=== PATIENT | female | born 1990 | race Caucasian/White ===

== ENCOUNTER 2018-08-17 02:27 | Emergency (ER) | payer BC ==
--- NOTE | 2018-08-17 03:11 | ED ---
Female Urogenital HPI - General Chief complaint: Vaginal Bleeding Stated complaint: 12 weeks preg vaginal bleeding Time Seen by Provider: 08/17/18 03:09 Source: patient Limitations: no limitations - History of Present Illness Initial comments: Rafi is a female who reports her last menstrual period was May 21, she had a positive test on July 07. Patient reports that she's had some nausea and generalized fatigue but otherwise no complications during this . Today she started having some spotting and contacted ' s office, patient reports that she had a consultation there today and is scheduled for a first trimester ultrasound tomorrow. Patient reports that after her consultation appointment today she returned home and was having some continued menstrual-like cramping and vaginal bleeding. Patient reports she took a warm bath she reports her vaginal bleeding then became much worse she began passing large clots and did pass a clot that she believed was tissue. Patient then decided to come to the ER for further evaluation. This is her first she has no concern for sexually transmitted infection she is uncertain of her blood type. - Related Data Allergies Allergy/AdvReac Type Severity Reaction Status Date / Time amoxicillin Allergy Rash/Hives Verified 08/17/18 02:40 Review of Systems ROS Statement: Those systems with pertinent positive or pertinent negative responses have been documented in the HPI. ROS Other: All systems not noted in ROS Statement are negative. Past Medical History Past Medical History: No Reported History History of Any Multi-Drug Resistant Organisms: None Reported Past Surgical History: No Surgical Hx Reported Past Psychological History: No Psychological Hx Reported Smoking Status: Never smoker Past Alcohol Use History: Occasional Past Drug Use History: None Reported General Exam - General Exam Comments Initial Comments: Physical Exam GENERAL: Patient is well-developed and well-nourished. Patient is nontoxic and well-hydrated and is in no distress. HENT: Normocephalic, Atraumatic. EYES: PERRL, EOMI PULMONARY: Unlabored respirations. CARDIOVASCULAR: Regular rate and rhythm ABDOMEN: Soft and nontender with normal bowel sounds. SKIN: Skin is clear with no lesions or rashes and otherwise unremarkable. : Normal external genitalia Dark blood and clots in the vaginal vault Cervix is dilated to approximately 1 cm, large clots passing via cervix - no obvious tissue was evaluated NEUROLOGIC: Patient is alert and oriented x3. Moving all extremities spontaneously MUSCULOSKELETAL: Normal extremities with adequate strength and full range of motion. No lower extremity swelling or edema. No calf tenderness. PSYCHIATRIC: Visual educational depression Limitations: no limitations Limitations: no limitations Course Vital Signs 08/17/18 02:38 Temperature 98.2 F Pulse Rate 75 Respiratory 18 Rate Blood Pressure 112/72 O2 Sat by Pulse 99 Oximetry Medical Decision Making - Medical Decision Making Patient was seen and evaluated history is obtained from the patient History and physical exam are concerning for first trimester bleeding versus miscarriage Very minimal menstrual-like cramping, no significant pain or tenderness Bedside ultrasound reveals no tissue in the uterus, no free fluid in the pelvis Patient's CBC is unremarkable white blood cell count is 14 which is likely related to , hemoglobin stable at 13.7 Patient's beta hCG is less than 600, this does not correlate with her expected dates, I have a suspicion the patient had a nonviable versus demise some time ago Blood type is Rh+ there is no indication for RhoGAM All results were discussed with the patient, significant other and patient's mother at bedside. I did offer the patient a transvaginal ultrasound on the emergency department to evaluate further however at this time the patient would prefer to be discharged home she does have an outpatient appointment for a ultrasound at noon today. During that the beta hCG is not significantly elevated I have no concern for molar . The patient does not have any significant pain or tenderness or free fluid in the pelvis with minimal concern for ectopic . I suspect the patient has had a completed miscarriage and will need OB follow-up. Return parameters were discussed all questions pertaining care were answered best my ability patient was discharged home in stable condition. - Lab Data Result diagrams: 08/17/18 03:37 Lab Results 08/17/18 08/17/18 08/17/18 Range/Units 03:37 03:37 03:37 WBC 14.0 H (3.8-10.6) k/uL RBC 4.67 (3.80-5.40) m/uL Hgb 13.7 (11.4-16.0) gm/dL Hct 41.3 (34.0-46.0) % MCV 88.5 (80.0-100.0) fL MCH 29.5 (25.0-35.0) pg MCHC 33.3 (31.0-37.0) g/dL RDW 13.4 (11.5-15.5) % Plt Count 160 (150-450) k/uL Neutrophils % 88 % Lymphocytes % 8 % Monocytes % 3 % Eosinophils % 1 % Basophils % 0 % Neutrophils # 12.3 H (1.3-7.7) k/uL Lymphocytes # 1.1 (1.0-4.8) k/uL Monocytes # 0.4 (0-1.0) k/uL Eosinophils # 0.1 (0-0.7) k/uL Basophils # 0.0 (0-0.2) k/uL HCG, Quant 568.1 mIU/mL Urine Color Urine Appearance (Clear) Urine pH (5.0-8.0) Ur Specific [place] (1.001-1.035) Urine Protein (Negative) Urine Glucose (UA) (Negative) Urine Ketones (Negative) Urine Blood (Negative) Urine Nitrite (Negative) Urine Bilirubin (Negative) Urine Urobilinogen (<2.0) mg/dL Ur Leukocyte Esterase (Negative) Urine RBC (0-5) /hpf Urine WBC (0-5) /hpf Ur Squamous Epith Cells (0-4) /hpf Blood Type A Positive Blood Type Recheck [facility] ONLY 08/17/18 Range/Units 03:37 WBC (3.8-10.6) k/uL RBC (3.80-5.40) m/uL Hgb (11.4-16.0) gm/dL Hct (34.0-46.0) % MCV (80.0-100.0) fL MCH (25.0-35.0) pg MCHC (31.0-37.0) g/dL RDW (11.5-15.5) % Plt Count (150-450) k/uL Neutrophils % % Lymphocytes % % Monocytes % % Eosinophils % % Basophils % % Neutrophils # (1.3-7.7) k/uL Lymphocytes # (1.0-4.8) k/uL Monocytes # (0-1.0) k/uL Eosinophils # (0-0.7) k/uL Basophils # (0-0.2) k/uL HCG, Quant mIU/mL Urine Color Light Yellow Urine Appearance Clear (Clear) Urine pH 7.0 (5.0-8.0) Ur Specific [place] 1.003 (1.001-1.035) Urine Protein Negative (Negative) Urine Glucose (UA) Negative (Negative) Urine Ketones Negative (Negative) Urine Blood Large H (Negative) Urine Nitrite Negative (Negative) Urine Bilirubin Negative (Negative) Urine Urobilinogen <2.0 (<2.0) mg/dL Ur Leukocyte Esterase Negative (Negative) Urine RBC 66 H (0-5) /hpf Urine WBC 1 (0-5) /hpf Ur Squamous Epith Cells <1 (0-4) /hpf Blood Type Blood Type Recheck Disposition Clinical Impression: Miscarriage Disposition: HOME SELF-CARE Condition: Stable Instructions (If sedation given, give patient instructions): Miscarriage (ED) Is patient prescribed a controlled substance at d/c from ED?: No Referrals: Macie Howard MD [Primary Care Provider] - 1-2 days Dominique Mazariegos DO [Doctor of Osteopathic Medicine] - 1-2 days
[2018-08-17 03:45] LABS: Basophils % (A) 0 %; Eosinophils # (A) 0.1 k/uL (0-0.7); Eosinophils % (A) 1 %; HCT 41.3 % (34.0-46.0); HGB 13.7 gm/dL (11.4-16.0); Lymphocytes # (A) 1.1 k/uL (1.0-4.8); Lymphocytes % (A) 8 %; MCH 29.5 pg (25.0-35.0); MCHC 33.3 g/dL (31.0-37.0); MCV 88.5 fL (80.0-100.0); Mean Platelet Volume 8.1; Monocytes # (A) 0.4 k/uL (0-1.0); Monocytes % (A) 3 %; Neutrophils # (A) 12.3 k/uL (1.3-7.7); Neutrophils % (A) 88 %; Platelet Count 160 k/uL (150-450); RBC 4.67 m/uL (3.80-5.40); RDW 13.4 % (11.5-15.5)
[2018-08-17 03:47] LABS: Appearance,Urine Clear (Clear); Bilirubin,Urine Negative (Negative); Blood,Urine Large (Negative); Color,Urine Light Yellow; Glucose,Urine (UA) Negative (Negative); Ketones,Urine Negative (Negative); Leukocyte Esterase,Urine Negative (Negative); Nitrite,Urine Negative (Negative); Protein,Urine Negative (Negative); RBC,Urine 66 /hpf (0-5); Specific Gravity,Urine 1.003 (1.001-1.035); Squamous Epithelial Cell,Urine <1 /hpf (0-4); Urobilinogen,Urine <2.0 mg/dL (<2.0)
[2018-08-17] MEDS ORDERED: ACET/COD 300 MG/30 MG STARTER PACK 6 TAB BTL PO STA (04:45)
[2018-08-17 05:05] VITALS: BP 103/61; PULSE 66; RESP 19; TEMP 98.3
== END 2018-08-17 04:49 | disposition home or self-care (01) ==
LOC: EC 02:27
DX: O03.9 Complete or unspecified spontaneous abortion without complication (principal); Z88.0 Allergy status to penicillin
CPT/HCPCS: 36415; 81001; 84702; 85025; 86900; 86901; 99284

== ENCOUNTER 2018-12-26 21:54 | Emergency (ER) | payer BC ==
[2018-12-26 22:25] VITALS: RESP 18; TEMP 98.2
--- NOTE | 2018-12-26 22:27 | ED ---
Female Urogenital HPI - General Chief complaint: Urogenital Stated complaint: Back pain Time Seen by Provider: 12/26/18 22:25 Source: patient, RN notes reviewed, old records reviewed Mode of arrival: ambulatory Limitations: no limitations - History of Present Illness Initial comments: This is a 28-year-old female the ER today. She presents today for evaluation of bowel pain severe sudden onset of bowel pain this afternoon with near syncopal event while in urination. Patient is had difficulty with urination as well. Significant recent medical history includes 2 pregnancies both versus spontaneous miscarriage. No surgery. Patient is currently on control denies chance of . She is complaining of suprapubic abdominal pain, no discharge, no significant dysuria or difficulty with bowel movements. MD Complaint: pelvic pain -: hour(s) Location: suprapubic Radiation: suprapubic Severity: moderate Severity scale (1-10): 5 Quality: cramping, dull Consistency: constant Improves with: none Worsens with: none Last Menstrual Period: 12/04/18 Associated Symptoms: abdominal pain, syncope (Near) - Related Data Home Medications Medication Instructions Recorded Confirmed Amethia Lo 100-20 1 tab PO DAILY 12/26/18 12/26/18 Clindamycin Topical Soln 1 applic TOPICAL BID 12/26/18 12/26/18 [Cleocin-T Topical Soln] Dextroamphetamine/Amphetamine 10 mg PO BID 12/26/18 12/26/18 [Adderall Xr] Minocycline HCl [Minocin] 100 mg PO DAILY 12/26/18 12/26/18 Allergies Allergy/AdvReac Type Severity Reaction Status Date / Time amoxicillin Allergy Rash/Hives Verified 12/26/18 22:39 Review of Systems ROS Statement: Those systems with pertinent positive or pertinent negative responses have been documented in the HPI. ROS Other: All systems not noted in ROS Statement are negative. Past Medical History Past Medical History: No Reported History History of Any Multi-Drug Resistant Organisms: None Reported Past Surgical History: No Surgical Hx Reported Past Psychological History: No Psychological Hx Reported Smoking Status: Never smoker Past Alcohol Use History: Occasional Past Drug Use History: None Reported General Exam Limitations: no limitations General appearance: alert, in no apparent distress Head exam: Present: atraumatic, normocephalic, normal inspection Eye exam: Present: normal appearance, PERRL, EOMI. Absent: scleral icterus, conjunctival injection, periorbital swelling ENT exam: Present: normal exam, mucous membranes moist Neck exam: Present: normal inspection. Absent: tenderness, meningismus, lymphadenopathy Respiratory exam: Present: normal lung sounds bilaterally. Absent: respiratory distress, wheezes, rales, rhonchi, stridor Cardiovascular Exam: Present: regular rate, normal rhythm, normal heart sounds. Absent: systolic murmur, diastolic murmur, rubs, gallop, clicks GI/Abdominal exam: Present: soft, normal bowel sounds. Absent: distended, tenderness, guarding, rebound, rigid Extremities exam: Present: normal inspection, full ROM, normal capillary refill. Absent: tenderness, pedal edema, joint swelling, calf tenderness Back exam: Present: normal inspection Neurological exam: Present: alert, oriented X3, CN II-XII intact Psychiatric exam: Present: normal affect, normal mood Skin exam: Present: warm, dry, intact, normal color. Absent: rash Course Vital Signs 12/26/18 12/26/18 12/27/18 22:21 23:28 00:48 Temperature 98.2 F Pulse Rate 87 72 83 Respiratory 18 18 Rate Blood Pressure 120/80 103/67 117/71 O2 Sat by Pulse 100 100 98 Oximetry - Reevaluation(s) Reevaluation #1: Medical record is reviewed Beta from first miscarriage this year and August did trend down to 0 no lab va lues from second miscarriage Patient is no significant acute distress able to ambulate eat and drink, vital signs are normal and have been stable Medical Decision Making - Medical Decision Making 28 female the ER with new and abdominal pain. Patient will follow-up regarding early with OB who is through Dr. Gomez. Patient is also here in the ER which is expected is negative with -700. - Lab Data Result diagrams: 12/26/18 23:12 12/26/18 23:12 Lab Results 12/26/18 12/26/18 12/26/18 Range/Units 23:00 23:00 23:12 WBC 11.0 H (3.8-10.6) k/uL RBC 5.04 (3.80-5.40) m/uL Hgb 14.2 (11.4-16.0) gm/dL Hct 42.3 (34.0-46.0) % MCV 83.9 (80.0-100.0) fL MCH 28.3 (25.0-35.0) pg MCHC 33.7 (31.0-37.0) g/dL RDW 15.0 (11.5-15.5) % Plt Count 154 (150-450) k/uL Neutrophils % 82 % Lymphocytes % 11 % Monocytes % 5 % Eosinophils % 1 % Basophils % 0 % Neutrophils # 9.0 H (1.3-7.7) k/uL Lymphocytes # 1.3 (1.0-4.8) k/uL Monocytes # 0.5 (0-1.0) k/uL Eosinophils # 0.1 (0-0.7) k/uL Basophils # 0.0 (0-0.2) k/uL Sodium (137-145) mmol/L Potassium (3.5-5.1) mmol/L Chloride (98-107) mmol/L Carbon Dioxide (22-30) mmol/L Anion Gap mmol/L BUN (7-17) mg/dL Creatinine (0.52-1.04) mg/dL Est GFR (CKD-EPI)AfAm (>60 ml/min/1.73 sqM) Est GFR (CKD-EPI)NonAf (>60 ml/min/1.73 sqM) Glucose (74-99) mg/dL Calcium (8.4-10.2) mg/dL Total Bilirubin (0.2-1.3) mg/dL AST (14-36) U/L ALT (9-52) U/L Alkaline Phosphatase (38-126) U/L Total Protein (6.3-8.2) g/dL Albumin (3.5-5.0) g/dL HCG, Quant mIU/mL Urine Color Dark Yellow Urine Appearance Clear (Clear) Urine pH 5.5 (5.0-8.0) Ur Specific [place] 1.031 (1.001-1.035) Urine Protein Trace H (Negative) Urine Glucose (UA) Negative (Negative) Urine Ketones Negative (Negative) Urine Blood Trace H (Negative) Urine Nitrite Negative (Negative) Urine Bilirubin Negative (Negative) Urine Urobilinogen <2.0 (<2.0) mg/dL Ur Leukocyte Esterase Small H (Negative) Urine RBC 1 (0-5) /hpf Urine WBC 2 (0-5) /hpf Ur Squamous Epith Cells 2 (0-4) /hpf Urine Mucus Few H (None) /hpf Urine HCG, Qual Detected (Not Detectd) 12/26/18 12/26/18 Range/Units 23:12 23:12 WBC (3.8-10.6) k/uL RBC (3.80-5.40) m/uL Hgb (11.4-16.0) gm/dL Hct (34.0-46.0) % MCV (80.0-100.0) fL MCH (25.0-35.0) pg MCHC (31.0-37.0) g/dL RDW (11.5-15.5) % Plt Count (150-450) k/uL Neutrophils % % Lymphocytes % % Monocytes % % Eosinophils % % Basophils % % Neutrophils # (1.3-7.7) k/uL Lymphocytes # (1.0-4.8) k/uL Monocytes # (0-1.0) k/uL Eosinophils # (0-0.7) k/uL Basophils # (0-0.2) k/uL Sodium 139 (137-145) mmol/L Potassium 4.1 (3.5-5.1) mmol/L Chloride 106 (98-107) mmol/L Carbon Dioxide 23 (22-30) mmol/L Anion Gap 10 mmol/L BUN 20 H (7-17) mg/dL Creatinine 0.86 (0.52-1.04) mg/dL Est GFR (CKD-EPI)AfAm >90 (>60 ml/min/1.73 sqM) Est GFR (CKD-EPI)NonAf >90 (>60 ml/min/1.73 sqM) Glucose 97 (74-99) mg/dL Calcium 9.0 (8.4-10.2) mg/dL Total Bilirubin 0.3 (0.2-1.3) mg/dL AST 26 (14-36) U/L ALT 22 (9-52) U/L Alkaline Phosphatase 62 (38-126) U/L Total Protein 6.6 (6.3-8.2) g/dL Albumin 4.3 (3.5-5.0) g/dL HCG, Quant 729.5 mIU/mL Urine Color Urine Appearance (Clear) Urine pH (5.0-8.0) Ur Specific [place] (1.001-1.035) Urine Protein (Negative) Urine Glucose (UA) (Negative) Urine Ketones (Negative) Urine Blood (Negative) Urine Nitrite (Negative) Urine Bilirubin (Negative) Urine Urobilinogen (<2.0) mg/dL Ur Leukocyte Esterase (Negative) Urine RBC (0-5) /hpf Urine WBC (0-5) /hpf Ur Squamous Epith Cells (0-4) /hpf Urine Mucus (None) /hpf Urine HCG, Qual (Not Detectd) - Radiology Data Radiology results: report reviewed (Ultrasound OB is negative, no findings), image reviewed Disposition Clinical Impression: Abdominal pain, at early stage Disposition: HOME SELF-CARE Condition: Good Instructions (If sedation given, give patient instructions): Abdominal Pain in (ED) Is patient prescribed a controlled substance at d/c from ED?: No Referrals: Macie Howard MD [Primary Care Provider] - 1-2 days
[2018-12-26] MEDS ORDERED: SODIUM CHLORIDE 0.9% 1,000 ML IV ONE (22:45)
[2018-12-26] MEDS ORDERED: MORPHINE SULFATE 4 MG/ML SYRINGE IV STA (22:45)
[2018-12-26 23:19] LABS: Appearance,Urine Clear (Clear); Bilirubin,Urine Negative (Negative); Blood,Urine Trace (Negative); Color,Urine Dark Yellow; Glucose,Urine (UA) Negative (Negative); Ketones,Urine Negative (Negative); Leukocyte Esterase,Urine Small (Negative); Mucus,Urine Few /hpf; Nitrite,Urine Negative (Negative); PH, Urine 5.5 (5.0-8.0); Protein,Urine Trace (Negative); RBC,Urine 1 /hpf (0-5); Specific Gravity,Urine 1.031 (1.001-1.035); Squamous Epithelial Cell,Urine 2 /hpf (0-4); Urobilinogen,Urine <2.0 mg/dL (<2.0); WBC,Urine 2 /hpf (0-5)
[2018-12-26 23:25] LABS: Basophils % (A) 0 %; Eosinophils # (A) 0.1 k/uL (0-0.7); Eosinophils % (A) 1 %; HCT 42.3 % (34.0-46.0); HGB 14.2 gm/dL (11.4-16.0); Lymphocytes # (A) 1.3 k/uL (1.0-4.8); Lymphocytes % (A) 11 %; MCH 28.3 pg (25.0-35.0); MCHC 33.7 g/dL (31.0-37.0); MCV 83.9 fL (80.0-100.0); Mean Platelet Volume 9.2; Monocytes # (A) 0.5 k/uL (0-1.0); Monocytes % (A) 5 %; Neutrophils % (A) 82 %; Platelet Count 154 k/uL (150-450); RBC 5.04 m/uL (3.80-5.40)
[2018-12-26 23:34] LABS: ALT 22 U/L (9-52); AST 26 U/L (14-36); African American GFR (CKD) >90 (>60 ml/min/1.73 sqM); Albumin 4.3 g/dL (3.5-5.0); Alkaline Phosphatase 62 U/L (38-126); Anion Gap 10 mmol/L; Blood Urea Nitrogen 20 mg/dL (7-17); Carbon Dioxide 23 mmol/L (22-30); Chloride 106 mmol/L (98-107); Glucose 97 mg/dL (74-99); Potassium 4.1 mmol/L (3.5-5.1); Sodium 139 mmol/L (137-145); Total Bilirubin 0.3 mg/dL (0.2-1.3); Total Protein 6.6 g/dL (6.3-8.2)
[2018-12-27 00:50] VITALS: BP 117/71; PULSE 83
--- NOTE | 2018-12-27 00:53 | US ---
EXAMINATION TYPE: Transabdominal/transvaginal pelvic ultrasound DATE OF EXAM: 12/27/2018 12:22 AM COMPARISON: NONE CLINICAL HISTORY: pain. Pt states pelvic pressure and back pain, pt states unknown LMP due to recent miscarriage in October, has not had normal menses yet EXAM PERFORMED: Transvaginal (TV) and Transabdominal (TA) EXAM MEASUREMENTS: GESTATIONAL AGE / DATING Physician Established: Not yet established Dates by LMP: Unknown Dates by Current Scan for: No IUP seen at this time MATERNAL ANATOMY Uterus: 9.5 x 4.7 x 5.9 cm Right Ovary: 3.1 x 1.9 x 2.1 cm Left Ovary: Unable to visualize Post CDS / Adnexa: wnl Presence of free fluid: Yes, small amount posterior cul de sac Presence of corpus luteal cyst: Right Ovary= 2.0 x 1.4 x 1.9 cm GESTATION / SURVEY IUP: No gestational sac or yolk sac. No pole. No IUP seen at this time, endometrium abnormally thickened (2.2 cm) and heterogeneous with cystic components near lower uterine segment Date of LMP: Unknown Beta HcG (if available): 729.5 IMPRESSION: No intrauterine seen at this time. It may still be too early. Suggest following the beta-hCG trend and short follow-up ultrasound. No adnexal masses to suggest ectopic at this time either.
[2018-12-29 15:17] LABS: C. trachomatis,PCR Negative (Neg,Equiv); Chlamydia trachomatis Source Urine
[2018-12-29 15:25] LABS: N. gonorrhoeae,PCR Negative (Neg,Equiv); Neisseria Source Urine
== END 2018-12-27 01:39 | disposition home or self-care (01) ==
LOC: EC 21:54
DX: O99.89 Other specified diseases and conditions complicating pregnancy, childbirth and the puerperium (principal); R10.30 Lower abdominal pain, unspecified; R10.2 Pelvic and perineal pain; Z3A.00 Weeks of gestation of pregnancy not specified; Z88.0 Allergy status to penicillin; Z79.899 Other long term (current) drug therapy
CPT/HCPCS: 36415; 76801; 76817; 80053; 81001; 81025; 84702; 85025; 87086; 87491; 87591; 96360; 99284

== ENCOUNTER 2019-09-01 15:32 | Inpatient (IN) | payer BC ==
[2019-09-08] MEDS ORDERED: OXYTOCIN 10 UNIT/ML 1 ML VIAL IM PRN (06:27)
[2019-09-08] MEDS ORDERED: METHYLERGONOVINE 0.2 MG/ML 1 ML AMP IM PRN (06:27)
[2019-09-08] MEDS ORDERED: LIDOCAINE 0.5% (PF) 5 MG/ML (50 ML SDV) SQ PRN (06:27)
[2019-09-08] MEDS ORDERED: CARBOPROST TROMETHAMINE 250 MCG/ML 1 ML AMP IM PRN (06:27)
[2019-09-08] MEDS ORDERED: TERBUTALINE 1 MG/ML VIAL SQ PRN (06:27)
[2019-09-08] MEDS ORDERED: OXYTOCIN 30 UNITS/500 ML NS 30 UNIT in SALINE 1 500ML.BAG IV SCH (06:30)
[2019-09-08] MEDS: LACTATED RINGERS 1,000 ML IV SCH ×2 (06:43→11:37)
[2019-09-08 07:04] LABS: Basophils % (A) 0 %; Eosinophils # (A) 0.1 k/uL (0-0.7); Eosinophils % (A) 1 %; HCT 41.1 % (34.0-46.0); HGB 13.5 gm/dL (11.4-16.0); Lymphocytes # (A) 1.6 k/uL (1.0-4.8); Lymphocytes % (A) 11 %; MCHC 32.8 g/dL (31.0-37.0); MCV 85.3 fL (80.0-100.0); Mean Platelet Volume 10.2; Monocytes # (A) 0.5 k/uL (0-1.0); Monocytes % (A) 3 %; Neutrophils % (A) 83 %; Platelet Count 129 k/uL (150-450); RBC 4.82 m/uL (3.80-5.40); RDW 14.8 % (11.5-15.5); WBC 14.4 k/uL (3.8-10.6)
--- NOTE | 2019-09-08 08:46 | P.HPOB ---
History of Present Illness H&P Date: 09/08/19 Chief Complaint: IUP 41 0/7 weeks, postdates This is a pleasant 29 yo at 41 0/7 weeks, presents for induction of labor secondary to postdates. she notes good FM, ctx last night, denies VB, LOF she has been receiving routine care that has been complicated by a right multicystic kidney. Maternal- medicine consult was obtained testing has been performed and normal in nature. Patient will need pediatric follow-up after delivery. On bloodwork patient has a blood type of A+, rubella status immune, RPR nonreactive, hepatitis B surface antigen negative, HIV negative, she did pass her 1 hour gestational diabetes screen, group beta strep culture was negative on 08/03/19. Review of Systems Constitutional: Denies fatigue, Denies fever Ears, nose, mouth and throat: Denies headache Cardiovascular: Reports leg edema Respiratory: Denies dyspnea Gastrointestinal: Denies diarrhea, Denies nausea, Denies vomiting Genitourinary: Reports Past Medical History Past Medical History: No Reported History History of Any Multi-Drug Resistant Organisms: None Reported Past Surgical History: No Surgical Hx Reported Additional Past Surgical History / Comment(s): [place] tooth extraction Past Anesthesia/Blood Transfusion Reactions: No Reported Reaction Past Psychological History: No Psychological Hx Reported Smoking Status: Never smoker Past Alcohol Use History: None Reported Past Drug Use History: None Reported - Past Family History Father Family Medical History: No Reported History Medications and Allergies Home Medications Medication Instructions Recorded Confirmed Type 78/Iron/Folate 1/Dha 1 each PO DAILY 09/08/19 09/08/19 History [Prenate Dha Softgel] Allergies Allergy/AdvReac Type Severity Reaction Status Date / Time amoxicillin Allergy Rash/Hives Verified 09/08/19 06:26 Exam Osteopathic Statement: *. No significant issues noted on an osteopathic structural exam other than those noted in the History and Physical/Consult. Vital Signs Temp Pulse Resp BP 09/08/19 06:28 98.4 F 105 H 16 113/70 Intake and Output 09/07/19 09/08/19 09/08/19 22:59 06:59 14:59 Other: Weight 90.718 kg On targeted physical exam this is a well-nourished well-developed female in no acute distress, breathing is noted to be nonlabored, heart has regular rate and rhythm, abdomen is gravid and appropriate for gestational age, on cervical exam she is 3-4/90/-2 with a bulging bag of water, amniotomy is performed and clear fluid is noted, heart tones are noted to be category 1 contractions are irregular. Results Result Diagrams: 09/08/19 06:45 Abnormal Lab Results - Last 24 Hours (Table) 09/08/19 Range/Units 06:45 WBC 14.4 H (3.8-10.6) k/uL Plt Count 129 L (150-450) k/uL Neutrophils # 12.0 H (1.3-7.7) k/uL Assessment and Plan (1) Post-dates Current Visit: Yes Status: Acute Code(s): O48.0 - POST-TERM SNOMED Code(s): 32491677 Plan: Patient is admitted to labor and delivery for Pitocin induction of labor secondary to postdates. Pitocin is started per hospital protocol. Epidural versus Stadol is discussed with patient and she will consider.
[2019-09-08] MEDS ORDERED: SODIUM CHLORIDE 0.9% 100 ML BAG ONE (11:04)
[2019-09-08] MEDS ORDERED: fentaNYL (PF) 50 MCG/ML 5 ML AMP ONE (11:04)
[2019-09-08] MEDS ORDERED: ROPIVACAINE 5MG/ML 20ML VIAL ONE (11:04)
[2019-09-08] MEDS ORDERED: diphenhydrAMINE 25 MG CAP PO PRN (17:16)
[2019-09-08] MEDS ORDERED: BENZOCAINE/MENTHOL SPRAY 1 GM/SPRAY AEROSOL TOPICAL PRN (17:16)
[2019-09-08] MEDS ORDERED: SIMETHICONE 80 MG CHEWABLE PO PRN (17:16)
[2019-09-08] MEDS ORDERED: diphenhydrAMINE 50 MG/ML 1 ML VIAL IVP PRN ×2 (17:16)
[2019-09-08] MEDS ORDERED: IBUPROFEN 600 MG TAB PO PRN (17:16)
[2019-09-08] MEDS ORDERED: WITCH HAZEL 1 EACH MED..PAD TOPICAL PRN (17:16)
[2019-09-08] MEDS ORDERED: ZOLPIDEM 5 MG TAB PO PRN (17:16)
[2019-09-08] MEDS ORDERED: diphenhydrAMINE 50 MG CAP PO PRN (17:16)
[2019-09-08] MEDS ORDERED: LANOLIN CREAM 5 GM TUBE TOPICAL PRN (17:16)
[2019-09-08] MEDS ORDERED: ACETAMINOPHEN TAB 325 MG TAB PO PRN (17:16)
[2019-09-08] MEDS ORDERED: HYDROcodone/APAP 5-325MG 1 EACH TAB PO PRN (17:16)
[2019-09-08] MEDS ORDERED: HYDROCORTISONE 2.5% RECTAL CREAM 30 GM TUBE RECTAL PRN (17:16)
--- NOTE | 2019-09-08 17:21 | P.PROBDLV ---
Vaginal Delivery Note - . Vaginal Delivery Note: This is a pleasant 29-year-old 3 para 00-0 at 41-0/7 weeks that presented to labor and delivery for induction of labor secondary to postdates. Patient had been receiving routine care and on 20 week ultrasound multicystic kidney was noted. Patient subsequently had a maternal- medicine consult where a multicystic kidney was confirmed. They did feel the right kidney was not functioning but the left appeared normal. Fluid and growth checks have been normal throughout the . She had normal testing. Patient was admitted to labor and delivery and Pitocin induction of labor was begun per hospital protocol. Patient underwent amniotomy and thin meconium-stained fluid was noted. Patient became uncomfortable and requesting epidural placement. Patient had epidural placement anesthesia Department without difficulty. Patient progressed to complete began pushing and had a normal spontaneous vaginal delivery of a viable female infant at 1657, weight of 7 lbs. 14 oz. and Apgars of 8 and 9 at one and 5 minutes respectfully. After a two-minute delayed the umbo cord was doubly clamped and cut and the infant was handed off to awaiting RN. The placenta was then delivered spontaneously intact with three-vessel cord being noted. A spontaneous cry was noted at . On inspection the patient's vaginal vault a first-degree vaginal laceration was noted. This was repaired in the usual fashion with 3-0 Rapide. Uterus is noted be firm and below the umbilicus at this time. Estimated blood loss 200 mL. Patient and tolerated delivery well and are resting comfortably.
[2019-09-08] MEDS ORDERED: OXYTOCIN 20 UNITS/1000 ML NS 1,000 ML IV SCH (17:30)
[2019-09-08] MEDS: SENNOSIDES-DOCUSATE SODIUM 1 EACH TAB PO SCH (19:30)
[2019-09-09 08:34] LABS: Basophils % (A) 0 %; Eosinophils # (A) 0.1 k/uL (0-0.7); Eosinophils % (A) 0 %; HCT 39.4 % (34.0-46.0); HGB 12.5 gm/dL (11.4-16.0); Lymphocytes # (A) 1.4 k/uL (1.0-4.8); Lymphocytes % (A) 8 %; MCH 27.6 pg (25.0-35.0); MCHC 31.8 g/dL (31.0-37.0); MCV 86.8 fL (80.0-100.0); Mean Platelet Volume 10.5; Monocytes # (A) 0.6 k/uL (0-1.0); Monocytes % (A) 3 %; Neutrophils # (A) 15.1 k/uL (1.3-7.7); Neutrophils % (A) 87 %; Platelet Count 129 k/uL (150-450); RBC 4.54 m/uL (3.80-5.40); RDW 14.9 % (11.5-15.5); WBC 17.4 k/uL (3.8-10.6)
[2019-09-09] MEDS ORDERED: PRENATAL VIT-IRON-FOLIC ACID 1 EACH CAP PO SCH (09:00)
[2019-09-09 10:13] VITALS: BP 113/65; PULSE 65; RESP 16; TEMP 97.8
[2019-09-09] MEDS: SENNOSIDES-DOCUSATE SODIUM 1 EACH TAB PO SCH (10:14)
--- NOTE | 2019-09-14 11:55 | P.MSEPDOC ---
Presenting Problems - Arrival Data Date of Arrival on Unit: 09/08/19 Time of Arrival on Unit: 06:00 Medical History - Information : 3 Para: 0 Term: 0 : 0 Abortions: Spontaneous or Elective: 2 Number of Living Children: 0 - Gestational Age Gestational Age by HELIO (wks/days): 41 Weeks and 0 Days Vital Signs - Temperature Temperature: 97.8 F Temperature Source: Oral - Pulse Pulse Oximetery Pulse Rate: 65 Pulse Assessment Method: Automatic Cuff - Respirations Respiratory Rate: 16 Oxygen Delivery Method: Room Air - Blood Pressure Sitting Blood Pressure: 113/65 Blood Pressure Mean: 81 Blood Pressure Source: Automatic Cuff Disposition - Disposition Discharge Date: 09/09/19 Discharge Time: 19:30 I agree with the RN Medical Screening Exam: No Risk & Benefit of care provided described in d/c instruction: No Diagnosis: OTHER SPECIFIED COMPLICATIONS OF LABOR AND DELIVERY
--- NOTE | 2019-09-14 12:03 | P.DS ---
Providers Date of admission: 09/08/19 06:04 Expected date of discharge: 09/09/19 Attending physician: Dominique Mazariegos Primary care physician: Stated None - Discharge Diagnosis(es) (1) Post-dates Status: Acute (2) Status post vaginal delivery Status: Acute (3) Obstetric vaginal laceration with first degree perineal laceration Status: Acute Hospital Course: This is a pleasant 29yo at 41 0/7 weeks that presents to labor and delivery for IOL secondary to postdates. she was admitted to labor and delivery for pitocin induction per hospital protocol. care had been complicated by known multicystic right kidney. she had seen MFM, testing was done and normal. she notes good FM, occ ctx, no VB, LOF. patient underwent amniotomy which revelaed thin meconium stained fluid. she progressed through labor eventually requesting epidural. this was placed by anesthesia wihtout difficulty. she progressed to complete began pushing. she had a of a live female 7-14 with apgars of 8-9 at 1 and 5 minutes respectively. After a 2 minute delay the umbilical cord was cut and was handed off to mom. the placenta was delivered spontaneously intact with a 3VC being noted. uterus was firm at this point and below the umbilicus. she did sustain a 1st degree laceration which was repaired in the usual fashion. Her course was uneventful. she was doing well and requested D/C at PPD 1. she had follow up for infant with peds given her known multi cystic kidney. she was ambulating and voiding without difficulty, tolerating a regular diet. she denied concerns. Patient Condition at Discharge: Good Plan - Discharge Summary New Discharge Prescriptions: No Action 78/Iron/Folate 1/Dha [Prenate Dha Softgel] 1 each PO DAILY Discharge Medication List 78/Iron/Folate 1/Dha [Prenate Dha Softgel] 1 each PO DAILY 09/08/19 [History] Follow up Appointment(s)/Referral(s): Dominique Mazariegos DO [Doctor of Osteopathic Medicine] - 6 Weeks Patient Instructions/Handouts: Vaginal Delivery (DC), Vaginal Delivery (GEN) Discharge Disposition: HOME SELF-CARE
== END 2019-09-09 17:30 | disposition home or self-care (01) | DRG 807 ==
LOC: 4FBP 09-08 06:04
PROVIDERS: ADMIT Obstetrics & Gynecology Obstetrics; ATTEND Obstetrics & Gynecology Obstetrics
PROC: 3E0R3BZ Introduction of Anesthetic Agent into Spinal Canal, Percutaneous Approach (ICD-10-PCS; principal; 2019-09-08)
PROC: 10E0XZZ Delivery of Products of Conception, External Approach (ICD-10-PCS; principal; 2019-09-08)
PROC: 00HU33Z Insertion of Infusion Device into Spinal Canal, Percutaneous Approach (ICD-10-PCS; principal; 2019-09-08)
PROC: 3E033VJ Introduction of Other Hormone into Peripheral Vein, Percutaneous Approach (ICD-10-PCS; principal; 2019-09-08)
PROC: 0HQ9XZZ Repair Perineum Skin, External Approach (ICD-10-PCS; principal; 2019-09-08)
PROC: 10907ZC Drainage of Amniotic Fluid, Therapeutic from Products of Conception, Via Natural or Artificial Opening (ICD-10-PCS; principal; 2019-09-08)
DX: O48.0 Post-term pregnancy (principal); Z37.0 Single live birth; O70.0 First degree perineal laceration during delivery; O77.0 Labor and delivery complicated by meconium in amniotic fluid; Z3A.41 41 weeks gestation of pregnancy; Z88.0 Allergy status to penicillin
CPT/HCPCS: 85025; 86850; 86900; 86901; 88307

== ENCOUNTER → 2021-01-07 | Outpatient (CLI) | payer BC ==
[2021-01-07 16:50] LABS: Prothrombin Time 10.3 sec (9.0-12.0)
== END | disposition home or self-care (01) ==
LOC: LABWHC1 16:09
PROVIDERS: ATTEND Family Medicine
DX: Z01.812 Encounter for preprocedural laboratory examination (principal)
CPT/HCPCS: 36415; 85610; 85730